=== PATIENT | female | born 1975 | race Caucasian/White ===

== ENCOUNTER → 2016-08-05 | Outpatient (CLI) | payer BC ==
[~2016-08-05] MED LIST: ERYT1OIN55 OP
== END | disposition home or self-care (01) ==
LOC: C.PAPS 13:43
PROVIDERS: ATTEND Obstetrics & Gynecology
DX: Z01.419 Encounter for gynecological examination (general) (routine) without abnormal findings (principal)

== ENCOUNTER → 2016-08-05 | Outpatient (CLI) | payer BC ==
[2016-08-05 14:29] LABS: URINE APPEARANCE CLEAR (CLEAR); URINE BILIRUBIN NEG (NEG); URINE EPITHELIAL CELL AUTO >30 /lpf (0-5); URINE NITRITE NEG (NEG); URINE SPECIFIC GRAVITY 1.007 (1.000-1.030); UROBILINOGEN NEG (NEG)
[2016-08-05 14:35] LABS: MANUAL MICROSCOPIC REQUIRED? NO; REVIEW REQ? NO; URINE COLOR YELLOW
[2016-08-07 20:48] LABS: CHLAMYDIA TRACH RNA*** NOT DETECTED (NOT DETECTED); GC (NEIS GONORRHOEAE)RNA** NOT DETECTED (NOT DETECTED)
== END | disposition home or self-care (01) ==
LOC: C.LABSPEC 13:21
PROVIDERS: ATTEND Obstetrics & Gynecology
DX: Z11.3 Encounter for screening for infections with a predominantly sexual mode of transmission (principal); R39.15 Urgency of urination

== ENCOUNTER → 2017-06-14 | Outpatient (CLI) | payer OTHER | END | disposition home or self-care (01) | LOC: C.LABSPEC 15:46 | PROVIDERS: ATTEND Obstetrics & Gynecology | DX: R39.15 Urgency of urination (principal) ==

== ENCOUNTER → 2017-09-09 | Outpatient (CLI) | payer OTHER | END | disposition home or self-care (01) | LOC: C.LABSPEC 17:06 | PROVIDERS: ATTEND Urology | DX: R39.9 Unspecified symptoms and signs involving the genitourinary system (principal); N90.9 Noninflammatory disorder of vulva and perineum, unspecified ==